=== PATIENT | female | born 1955 | race Caucasian/White ===

== ENCOUNTER → 2022-08-21 13:53 | Outpatient (BNVA) | payer OTHER, SELFPAY | PROVIDERS: PCP Physician Assistant; Visit Provider Psychiatry & Neurology Psychiatry | DX: Z13.89 Encounter for screening for other disorder (principal) ==

== ENCOUNTER → 2022-12-27 13:54 | Outpatient (BNVA) | payer OTHER, SELFPAY | PROVIDERS: PCP Physician Assistant; Visit Provider Psychiatry & Neurology Psychiatry ==

== ENCOUNTER 2023-08-20 15:40 | Outpatient (AMB) | payer OTHER, SELFPAY ==
--- NOTE | 2023-08-20 14:10 | A.OFFPSYCH_ITS ---
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 She has been looking for another apt has not had relationship with her h x years Past Psychiatric History: Patient has long history of anxiety disorder including panic which has generally been managed and history of intermittent depressive episodes Mental Status Exam Mental Status Exam Patient Appearance: Well Grooomed Patient Orientation: Person, Place, Time and Situation Level of Consciousness: Awake and Appropriate Patient Behavior: Appropriate Mood Description: Depressed, Anxious and Apprehensive Affect Description: Appropriate and Constricted Patient Cognition Impaired: No Ability to Follow Directions: Good Speech Pattern: Clear Memory Description: Intact Hallucinations: None Delusions: Not Present Thought Process: Intact and Goal Oriented Thought Content: positive for Goal Oriented, positive for Preoccupation, negative for Suicidal Ideation or negative for Homicidal Ideation Depressive Symptoms: Increased Anxiety, Increased Irritability, Hopelessness, Increased Fatigue, Loss of Energy and Difficulty Concentrating Judgement: Good Assessment and Plan Assessment & Plan (1) Generalized anxiety disorder: Status: Acute Code(s): F41.1 - Generalized anxiety disorder (2) Major depressive disorder in partial remission: Status: Acute Code(s): F32.4 - Major depressive disorder, single episode, in partial remission Plan pt has been more overwhelmed anxious ruminating has difficult feelings regarding her h who continues to refuse much care no active si preoccupied overwhelmed anxious ruminating no psychosis pt to talk with her son re situation he is HCP for Counseling and coordination of Care Pt. Self Management counseling: Breathing, Muscle relaxation and Problem solving Details-Self Mgmt counseling: feels overwelmed with medically ill h she is from Medication management counseling: Effectiveness, Side effects and Dosing range Diagnosis and Prognosis Counseling: Adequacy of current interventions Details-Diagnosis/Prognosis counseling: encourage walk yoga class Details: I spent [40] minutes reviewing the record, seeing the patient and documenting in the medical record. Counseling provided to the patient/caregiver as outlined below. Addressed patient/caregiver concerns regarding current medication regime including effective adherence. Addressed patient/caregiver concerns regarding diagnosis and prognosis including accuracy of diagnosis, prognosis over time, impact of diagnosis. Addressed patient/caregiver concerns regarding impact of recent stressors. 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
[2023-08-20 14:37] VITALS: BP 150/88; PULSE 62
== END 2023-08-20 15:41 | disposition home or self-care (01) ==
LOC: HO.HOP 15:40
PROVIDERS: PCP Physician Assistant; Visit Provider Psychiatry & Neurology Psychiatry
DX: F41.1 Generalized anxiety disorder (principal); F32.4 Major depressive disorder, single episode, in partial remission
CPT/HCPCS: 90833; 99213

== ENCOUNTER → 2023-08-20 15:40 | Outpatient (BNVA) | payer OTHER, SELFPAY | PROVIDERS: PCP Physician Assistant; Visit Provider Psychiatry & Neurology Psychiatry | DX: F41.1 Generalized anxiety disorder (principal); F32.4 Major depressive disorder, single episode, in partial remission ==

== ENCOUNTER 2024-01-23 14:15 | Outpatient (AMB) | payer OTHER, SELFPAY ==
--- NOTE | 2024-01-23 14:54 | A.OFFPSYCH_ITS ---
Intake Intake Visit Reasons: depression Allergies No Known Allergies Allergy (Verified 05/23/22 11:44) Medication List - Last Reconciled 01/23/24 by Seven Manzanares MD bupropion HCl SR 100 mg PO BID 90 days buspirone 30 mg PO BID clonazepam 0.5 mg PO DIRECTED escitalopram oxalate 20 mg PO DAILY HPI- Psychiatric Chief Complaint: depression HPI Narrative: Patient seen psychiatric follow-up. She continues to live with her although braided he continues to refuse most medical care and support. They have chronic issues relationship to their daughter who he has repeatedly given money to and there is a history of behavioral problems questionable history of addiction issues . The patient will be moving out and has apartment she is trying to set boundary they have been any type of relationship now really for a number of years. Has multiple medical problems and often refusing help her son is healthcare proxy. Patient with some obsessional worry not overly depressed some anxiety regarding this transition that is appropriate no new medical concerns there is history of cancer Past Psychiatric History: Patient has long history of anxiety disorder including panic which has generally been managed and history of intermittent depressive episodes Mental Status Exam Mental Status Exam Patient Appearance: Well Grooomed Patient Orientation: Person, Place, Time and Situation Level of Consciousness: Awake and Appropriate Patient Behavior: Appropriate Mood Description: Anxious and Apprehensive Affect Description: Appropriate and Constricted Patient Cognition Impaired: No Ability to Follow Directions: Good Speech Pattern: Clear Memory Description: Intact Hallucinations: None Delusions: Not Present Thought Process: Intact and Goal Oriented Thought Content: positive for Goal Oriented, positive for Preoccupation, negative for Suicidal Ideation or negative for Homicidal Ideation Depressive Symptoms: Increased Anxiety, Increased Irritability, Feelings of Guilt, Increased Fatigue and Loss of Energy Judgement: Good Assessment and Plan Assessment & Plan (1) Generalized anxiety disorder: Status: Acute Code(s): F41.1 - Generalized anxiety disorder (2) Major depressive disorder in partial remission: Status: Acute Code(s): F32.4 - Major depressive disorder, single episode, in partial remission Plan Patient does go out and has a separate support system of friends and others supports. She is very close with her son is looking forward to moving out she can not deal with her 's choices patient seems stable on BuSpar Lexapro 0.5 clonazepam at bedtime Medications: Refilled escitalopram oxalate 20 mg PO DAILY 90 tabs 1RF buspirone 30 mg PO BID 180 tabs 1RF clonazepam 1-2 tabs at bedtime may take additional 1 tab daily for anxiety USE CAUTION IF DRIVING 0.5 mg PO DIRECTED 60 tabs 2RF Counseling and coordination of Care Details-Self Mgmt counseling: Complex issues regarding her relationship with her moving out and trying to set boundaries especially given his medical condition Medication management counseling: Effectiveness, Side effects and Dosing range Diagnosis and Prognosis Counseling: Impact of diagnosis on life functions and Adequacy of current interventions Details: I spent [35] minutes reviewing the record, seeing the patient and documenting in the medical record. Counseling provided to the patient/caregiver as outlined below. Addressed patient/caregiver concerns regarding current medication regime including effective adherence. Addressed patient/caregiver concerns regarding diagnosis and prognosis including accuracy of diagnosis, prognosis over time, impact of diagnosis. Addressed patient/caregiver concerns regarding impact of recent stressors. 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
== END 2024-01-23 18:16 | disposition home or self-care (01) ==
LOC: HO.HOP 14:15
PROVIDERS: PCP Physician Assistant; Visit Provider Psychiatry & Neurology Psychiatry
DX: F41.1 Generalized anxiety disorder (principal); F32.4 Major depressive disorder, single episode, in partial remission
CPT/HCPCS: 90833; 99213

== ENCOUNTER → 2024-01-23 14:15 | Outpatient (BNVA) | payer OTHER, SELFPAY | PROVIDERS: PCP Physician Assistant; Visit Provider Psychiatry & Neurology Psychiatry ==

== ENCOUNTER 2024-05-25 13:14 | Outpatient (AMB) | payer OTHER, SELFPAY ==
--- NOTE | 2024-05-25 12:45 | A.OFFPSYCH_ITS ---
Intake Intake Visit Reasons: DEPRESSION Allergies No Known Allergies Allergy (Verified 05/23/22 11:44) Medication List - Last Reconciled 05/25/24 by Seven Manzanares MD bupropion HCl SR 100 mg PO BID 90 days buspirone 30 mg PO BID clonazepam 0.5 mg PO DIRECTED escitalopram oxalate 20 mg PO DAILY HPI- Psychiatric Chief Complaint: DEPRESSION HPI Narrative: Pt seen in f/u daughter has moved in taking care of her father her d is an alcoholic . Pt is doing ok daughter is helping with her , pt looking to move out. No medical changes still on waiting list for apt. has been taking lexapro buspar kloapin hs. Pt will be moving out feels more secure with d taking care of her father ,although she can hacve antisocial behavior. Past Psychiatric History: Patient has long history of anxiety disorder including panic which has generally been managed and history of intermittent depressive episodes Mental Status Exam Mental Status Exam Patient Appearance: Well Grooomed Patient Orientation: Person, Place, Time and Situation Level of Consciousness: Awake and Appropriate Patient Behavior: Appropriate Mood Description: Calm and Appropriate Affect Description: Appropriate Patient Cognition Impaired: No Ability to Follow Directions: Good Speech Pattern: Clear Memory Description: Intact Hallucinations: None Delusions: Not Present Thought Process: Intact and Goal Oriented Thought Content: positive for Goal Oriented, positive for Preoccupation, negative for Suicidal Ideation or negative for Homicidal Ideation Depressive Symptoms: Increased Anxiety, Increased Irritability, Feelings of G uilt, Increased Fatigue and Loss of Energy Judgement: Good Telehealth Telehealth Telehealth Platform: [facility] Location of provider rendering services: practice address Location of patient: address on file Patient Identification confirmed using: Name, : Yes Telehealth method: video Patient verbally consented to treatment: Yes Patient verbally consented to billing insurance company: Yes Minutes spent on Phone/Video with Pt.: 16 Assessment and Plan Assessment & Plan (1) Major depressive disorder in partial remission: Status: Acute Code(s): F32.4 - Major depressive disorder, single episode, in partial remission (2) Generalized anxiety disorder: Status: Acute Code(s): F41.1 - Generalized anxiety disorder Plan pt seems stable generally under some stress waiting for appt and living temp with her d in the house. cont plan of care. no evidence of abuse or tolerance of klonapin Medications: Refilled buspirone 30 mg PO BID 180 tabs 1RF Counseling and coordination of Care Details-Self Mgmt counseling: issues realted to family Details: I spent [] minutes reviewing the record, seeing the patient and documenting in the medical record. Counseling provided to the patient/caregiver as outlined below. Addressed patient/caregiver concerns regarding current medication regime including effective adherence. Addressed patient/caregiver concerns regarding diagnosis and prognosis including accuracy of diagnosis, prognosis over time, impact of diagnosis. Addressed patient/caregiver concerns regarding impact of recent stressors. 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
== END 2024-05-25 14:54 | disposition home or self-care (01) ==
LOC: HO.HOP 13:14
PROVIDERS: PCP Physician Assistant; Visit Provider Psychiatry & Neurology Psychiatry
DX: F32.4 Major depressive disorder, single episode, in partial remission (principal); F41.1 Generalized anxiety disorder
CPT/HCPCS: 99213

== ENCOUNTER → 2024-05-25 13:14 | Outpatient (BNVA) | payer OTHER, SELFPAY | PROVIDERS: PCP Physician Assistant; Visit Provider Psychiatry & Neurology Psychiatry ==

== ENCOUNTER 2024-08-18 13:34 | Outpatient (AMB) | payer OTHER, SELFPAY ==
--- NOTE | 2024-08-18 13:52 | MHC.OFFVISPS ---
Intake Intake Visit Reasons: depression Allergies No Known Allergies Allergy (Verified 05/23/22 11:44) HPI- Psychiatric Chief Complaint: depression HPI Narrative: Pt has been anxious dysphoric feeling under ongoing stress living with her and daughter. Her has COPD prostate cancer refuses basically to care for himself. The patient is on a waiting list for an apartment which is taking an extended period of time. She has difficult time living with her daughter who tends to be irresponsible and reportedly is stolen money repeatedly over time. We have talked about having a safe place that she can go things become too stressful. Patient tries to stay out of the house as much as possible works lot of hours goes out with friends. Patient continues on Lexapro Wellbutrin clonazepam at bedtime Past Psychiatric History: Patient has long history of anxiety disorder including panic which has generally been managed and history of intermittent depressive episodes Mental Status Exam Mental Status Exam Patient Appearance: Well Grooomed Patient Orientation: Person, Place, Time and Situation Level of Consciousness: Awake and Appropriate Patient Behavior: Appropriate Mood Description: Depressed and Apprehensive Affect Description: Appropriate Patient Cognition Impaired: No Ability to Follow Directions: Good Speech Pattern: Clear Memory Description: Intact Hallucinations: None Delusions: Not Present Thought Process: Intact and Goal Oriented Thought Content: positive for Goal Oriented, positive for Preoccupation, negative for Suicidal Ideation or negative for Homicidal Ideation Depressive Symptoms: Increased Anxiety, Increased Irritability, Feelings of Guilt, Increased Fatigue and Loss of Energy Judgement: Good Judgement and Insight: Increased anxiety regarding current situation Assessment and Plan Assessment & Plan (1) Major depressive disorder in partial remission: Status: Acute Code(s): F32.4 - Major depressive disorder, single episode, in partial remission (2) Generalized anxiety disorder: Status: Acute Code(s): F41.1 - Generalized anxiety disorder Plan Continue plan of care discussed different strategies for managing in current very stressful situation. Continue Wellbutrin escitalopram BuSpar for augmentation clonazepam Medications: Refilled bupropion HCl SR 100 mg PO BID 180 tabs 1RF 90 days escitalopram oxalate 20 mg PO DAILY 90 tabs 1RF buspirone 30 mg PO BID 180 tabs 1RF clonazepam 1-2 tabs at bedtime may take additional 1 tab daily for anxiety USE CAUTION IF DRIVING 0.5 mg PO DIRECTED 60 tabs 2RF Counseling and coordination of Care Details: I spent [] minutes reviewing the record, seeing the patient and documenting in the medical record. Counseling provided to the patient/caregiver as outlined below. Addressed patient/caregiver concerns regarding current medication regime including effective adherence. Addressed patient/caregiver concerns regarding diagnosis and prognosis including accuracy of diagnosis, prognosis over time, impact of diagnosis. Addressed patient/caregiver concerns regarding impact of recent stressors. 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
--- OUTSIDE RECORDS SUMMARY | 2024-08-18 14:31 | XMS_ITS | Data Portability ---
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 Plan of Treatment Reminders Order Date Submit Date Provider Last Modified By Organization Details Last Modified Time Details Appointments ANNUAL EXAM 2024 11:00A M Catrachita Barrera MD Not available Not available Not available Lab cytology report, thin prep, smear or scraping , cervical or vaginal 2023 024 GARRETT [facility], [address] [place] [place], [address], 01/23/2024 10:06:52 hemoglob in, gastroin testinal , stool 2023 024 [email or web address] 1 In-Office Order, Internal Use Only DO Not Attach Compendium DO Not Attach Compendium, Do Not Delete/merge, [id number] 01/16/2024 11:43:43 pap test, thinprep , cervical 2022 023 [facility], [address] [place], [address], 01/21/2023 08:18:12 fecal occult blood, stool 2022 023 [email or web address] 1 In-Office Order, Internal Use Only DO Not Attach Compendium DO Not Attach Compendium, Do Not Delete/merge, [id number] 01/14/2023 11:34:22 pap test, thinprep , cervical 2021 022 [facility], Cytopathology Service, [address] [place] [address], [id number], 01/19/2022 07:53:33 fecal occult blood, stool 2021 022 [email or web address] 1 In-Office Order, Internal Use Only DO Not Attach Compendium DO Not Attach Compendium, Do Not Delete/merge, [id number] 01/12/2022 11:32:52 pap, LB 2020 021 [facility], Cytopathology Service, [address] [place] [address], [id number], 04/26/2021 12:42:38 pap test, thinprep , cervical 2020 021 [facility], Cytopathology Service, [address] [place] [address], [id number], 01/19/2021 07:44:52 fecal occult blood, stool 2020 021 [email or web address] 1 In-Office Order, Internal Use Only DO Not Attach Compendium DO Not Attach Compendium, Do Not Delete/merge, [id number] 01/05/2021 14:29:10 Referral None recorded . Procedures None recorded . Surgeries None recorded . Imaging bone density [facility]23 [email or web address], [address], [place], [address], 07/17/2024 11:42:08 MAMMO, screenin g, digital, bilatera l - Breast Aspirati on and/or Biopsy if needed 2023 024 [facility] Orders, [address], [address], [place], [address], 01/17/2024 12:41:23 MAMMO, screenin g, digital, bilatera l - Breast Aspirati on and/or Biopsy if needed [email or web address] [place] [address] ([facility] Only), [address] [facility], [place], [address], 01/09/2024 07:51:24 MAMMO, screenin g, digital, bilatera l 2021 022 [email or web address] [facility] Orders, [address], [address], [place], [address], 01/06/2024 07:32:48 MAMMO, screenin g, digital, bilatera l 2020 021 [email or web address] [facility] Orders, [address], [address], [place], [address], 01/02/2022 08:31:21 Medication Orders None recorded . Patient TargetsNo targets recorded. 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 She had right breast invasive lobular cancer in 2008: is BRCA negative. Note from 2020: She is here for annual exam, is doing well. She had to cancel the Dr. Ortiz appointment a few times due to work, and then never rescheduled, but feels that recently her incontinence is improved. 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 She appears to be doing well. She is advised to get 1500 mg of calcium daily into her diet and supplements combined. There is a health benefit with adequate vitamin D supplementation to at least 400 units daily, daily aerobic exercise of 30 minutes, and stress reduction. Monthly self breast exam was taught, and stressed, and is advised to call if she discovers any new mass in the breast. Not available 01/05/2021 14:29:26 04/10/2021 [id number] abnormal Pap palmer t: care instructions Not available 04/10/2021 09:11:17 She is here for repeat pap as prior pap had ASCUS without HR HPV. Prior paps have all been fine. Pap is taken, if negative then return for routine care. If abnormal then proceed to colpo,this was explained, she is aware. Not available 04/10/2021 09:11:50 01/12/2022 [id number] learning about healthy weight Not available 01/12/2022 11:32:52 She is here for annual exam, doing well. Past history breast cancer. Her daughter and granddaughter finally moved out of her home! She is BRCA negative. 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 She had right breast invasive lobular cancer in 2008: is BRCA negative. She appears to be doing well. She is advised to get 1500 mg of calcium daily into her diet and supplements combined. There is a health benefit with adequate vitamin D supplementation to at least 400 units daily, daily aerobic exercise of 30 minutes, and stress reduction. Monthly self breast exam was taught, and stressed, and is advised to call if she discovers any new mass in the breast. Not available 01/12/2022 11:33:58 01/14/2023 [id number] learning about healthy weight [email or web address] Not available 01/14/2023 11:34:22 She is here for annual, doing well, remote history breast cancer. She is up to date with everything except colonoscopy, which she is just now due for. _ Note from 2021: She is here for annual exam, doing well. Past history breast cancer. Her daughter and granddaughter finally moved out of her home! She is BRCA negative. ____ She appears to be doing well. d Monthly self breast exam was taught, and stressed, and is advised to call if she discovers any new mass in the breast. Not available 01/14/2023 11:34:44 01/16/2024 [id number] learning about healthy weight [email or web address] Not available 01/16/2024 11:43:41 She is here for annual, doing well but due for bone density. She has a past history of melanoma and also of breast cancer. Her is age 71, in poor health and will not take care of himself, will not bathe, it is frustrating for her. Note from 2022: She is here for annual, doing well, remote history breast cancer. She is up to date with everything except colonoscopy, which she is just now due for. _ Note from 2021: She is here for annual exam, doing well. Past history breast cancer. Her daughter and granddaughter finally moved out of her home! She is BRCA negative. __ She appears to be doing well. Bone density ordered. Monthly self breast exam was taught, and stressed, and is advised to call if she discovers any new mass in the breast. Not available 01/16/2024 11:45:57 Reason for Referral None Reported. Results Created Date Observation Date Name Description Value Unit Range Abnormal Flag Note LastModifiedBy Organization Detail LastModifiedTime 01/06/20 21 01/05/2021 fecal occul t blood , stool Occult Blood negati ve Not Available In-Office Order Internal Use Only DO Not Attach Compendium DO Not Attach Compendium, Do Not Delete/merge, [id number] 01/05/2021 14:01:45 01/06/20 21 01/05/2021 PAP1C ASE [id number] ThinP rep Pap, Image d: ATYPI DARIUS SQUAM OUS CELLS OF UNDET ERMIN ED SIGNI MARIA FERNANDA CE (ASCU S) . Selin Beckham , CT( CP) (Case Scremirtha azra 01 10 2021) Michelle cain M.D. , Patho logis t (Case elect young allen yue d 01 17 2021) ___ RESUL T OF APTIM A HIGH RISK HPV ASSAY : HIGH RISK HPV: NEGAT LILIAN (sero types 16,18 ,31,3 3,35, 39,45 ,51,5 2,56, 58,59 ,66,6 8) Compl eted on 01-16 ADEQU ACY: Satis facto ry Endoc ervic al/tr ansfo rmati on zone compo nent prese nt. SOURC E: ThinP rep Pap HPV IF ASCUS , Cervi darius, Image d CLINI DARIUS INFOR MATIO N: HPV If Diagn osis of ASCUS . LPS 0 NEG [Z12. 4, Z01.4 19] Not Available [facility], Cytopathology Service [address] [place], [address], 01/17/2021 11:55:19 04/10/20 21 04/10/2021 PAP1C ASE [id number] ThinP rep Pap, Image d: NEGAT LILIAN FOR SQUAM OUS INTRA EPITH ELIAL LESIO N AND MALIG SHERRY . React lilian cellu lar leggett es. Abund ant red blood cells are prese nt. Willy rivero , CT( CP) (Case Scremirtha azra 04 23 2021) Yahir Bennett M.D. , Patho logis t (Case elect young allen yue d 04 24 2021) ADEQU ACY: Satis facto ry Endoc ervic al/tr ansfo rmati on zone compo nent prese nt. SOURC E: ThinP rep Pap HPV IF ASCUS , Cervi darius, Image d CLINI DARIUS INFOR MATIO N: HPV If Diagn osis of ASCUS . LPS 1 ASCUS HPV NEG. Z77.9 , R87.6 10 Not Available [facility], Cytopathology Service [address] [place], [address], 04/26/2021 12:42:38 01/13/20 22 01/12/2022 PAP1C ASE [id number] ThinP rep Pap, Image d: NEGAT LILIAN FOR SQUAM OUS INTRA EPITH ELIAL LESIO N AND MALIG SHERRY . Atrop hy. Carl Beckford hers , CT( CP) (Case elect young allen yue d 01 18 2022) ADEQU ACY: Satis facto ry Endoc ervic al/tr ansfo rmati on zone compo nent prese nt. SOURC E: ThinP rep Pap HPV IF Ascus : Refle x 16 and 18, Cervi darius, Image d CLINI DARIUS INFOR MATIO N: HPV If Diagn osis of ASCUS . LPS 04/10 neg, [Z01. 419] Not Available [facility], Cytopathology Service [address] [place], [address], 01/18/2022 08:41:36 01/13/20 22 01/12/2022 fecal occul t blood , stool Occult Blood negati ve Not Available In-Office Order Internal Use Only DO Not Attach Compendium DO Not Attach Compendium, Do Not Delete/merge, [id number] 01/12/2022 10:53:42 01/15/20 23 01/14/2023 [facility] CYTOL OGY results Patimirtha kowalski Name: RENÉ SOTOBishnu Garciamirtha dex : 1955 (Age: 67) Lab Acces joaquina #: [id number] Colle ction Date: 2022 Acces joaquina Date: 2022 Sign Out Date: 2022 Tissu e Sourc e: 1: 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 Satis facto ry for evalu ation . Endoc ervic al/tr ansfo rmati on zone prese nt. Clini darius Histo ry: Date of Last Menst rual Perio d: not avail able Menst rual Histo ry: Post- menop ausal Contr acept lilian Histo ry: not avail able Gene doll David ng: HPV (ASCU S) Case image d by the Thin rep Linhi naheed Systmirtha m with gilmar gannon or errol ramachandran Perfo rmed at [facility] ate Refer ence [facility] Cyt[facility], [address] [place] Clini darius Histo ry (othe r): Z01.4 19, LPS 01/12 neg Phone #: [phone], On-Ca ll Patho logis t: [id number] Not Available [facility] [address], [place], [address], 01/16/2023 13:31:29 01/15/20 23 01/14/2023 fecal occul t blood , stool Occult Blood negati ve Not Available In-Office Order Internal Use Only DO Not Attach Compendium DO Not Attach Compendium, Do Not Delete/merge, [id number] 01/14/2023 10:45:19 01/16/20 24 01/23/2024 IGP, RFX APTIM A HPV ASCU diagnosis: Commen t NEGAT LILIAN FOR INTRA EPITH ELIAL LESIO N OR RAY POWELL . CELLU CARLOS LEGGETT ES ASSOC IATED WITH ATROP HY ARE PRESE NT. Not Available [address], [address], 01/23/2024 10:06:52 01/16/20 24 01/23/2024 IGP, RFX APTIM A HPV ASCU specimen adequacy: Commen t Satis facto ry for evalu ation . Endoc ervic al compo nent may not be disti nguis hed in cases of atrop hy. Not Available [address], [address], 01/23/2024 10:06:52 01/16/20 24 01/23/2024 IGP, RFX APTIM A HPV ASCU clinician provided ICD10: Commen t Z01.4 19 Not Available [address], [address], 01/23/2024 10:06:52 01/16/20 24 01/23/2024 IGP, RFX APTIM A HPV ASCU performed by: Jose C Melgoza, Cytot echno logis t (ASCP ) Not Available [address], [address], 01/23/2024 10:06:52 01/16/20 24 01/23/2024 IGP, RFX APTIM A HPV ASCU electronical ly signed by: Jose C jones MD, Patho logis t Not Available [address], [address], 01/23/2024 10:06:52 01/16/20 24 01/23/2024 IGP, RFX APTIM A HPV ASCU . . Not Available [address], [address], 01/23/2024 10:06:52 01/16/20 24 01/23/2024 IGP, RFX APTIM A HPV ASCU note: Jose C wright The Pap smear is a scree supa test desig azra to aid in the detec tion of rubio ligna nt and malig nant condi tions of the uteri ne cervi x. It is not a diagn ostic proce dure and shoul d not be used as the sole means of detec ting cervi darius cance r. Both false -posi tive and false -nega tive repor ts do occur . Not Available [address], [address], 01/23/2024 10:06:52 01/16/20 24 01/23/2024 IGP, RFX APTIM A HPV ASCU test methodology: Jose C wright This liqui d based ThinP rep(R ) pap test was scree azra with the use of an image guide bhavana systmirtha m. Not Available [address] [place], [address], 01/23/2024 10:06:52 01/16/20 24 01/23/2024 IGP, RFX APTIM A HPV ASCU . Commen t The HPV DNA refle x crite socorro were not met with this speci men resul t there fore, no HPV testi ng was perfo rmed. Not Available [address], [address], 01/23/2024 10:06:52 01/16/20 24 01/16/2024 hemog lobin , gastr ointe shiv l, stool Occult Blood negati ve Not Available In-Office Order Internal Use Only DO Not Attach Compendium DO Not Attach Compendium, Do Not Delete/merge, [id number] 01/16/2024 10:51:04 12/29/19 21 12/28/2020 MAMMO , diagn ostic , digit al, unila teral No observ ation record ed. [facility] Orders [address], [place], [address], 12/28/2020 10:23:30 01/17/20 24 01/17/2024 MAMMO , scree supa, digit al, bilat eral No observ ation record ed. [facility] [address], [place], [address], 01/20/2024 06:36:28 Result Notes None recorded. Problems Name Problem SNOMED Code Status Onset Date Resolution Date Notes Provider Name and Address Organization Details Recorded Time Urinary incontinenc e [id number] Active 2017 Catrachita Barrera MD [address] [facility],[address], [place], [address], [place] - [facility], 8 11:17:57 Senile osteopenia 13124602 Active Catrachita Barrera MD [address], [place], [address], [place] [facility], 6 10:22:37 Family history of breast cancer 832922815 Active both sisters have had breast cancer, one was DCIS Catrachita Barrera MD [address], [place], [address], [place] - [facility], 9 15:04:58 History of Malignant melanoma 481742332 Active Catrachita Barrera MD [address], [place], [address], [place] - [facility], 6 10:22:37 Personal history of primary malignant neoplasm of breast 516217094 Active MyRisk panel negative Catrachita Barrera MD [address], [place], [address], [place] - [facility], 6 10:22:37 Problem Notes None recorded. Procedures Surgical History Date Name Laterality Status Provider Name and Address Organization Details Recorded Time 12/26/19 23 Most Recent Mammogram completed Anisa Anthony in [facility], 01/14/2023 10:49:43 07/01/19 09 Breast Biopsy completed Catrachita Barrera MD [address], [place], [address], [place] - [facility], 10/18/2016 13:04:12 07/01/19 09 Other completed Catrachita Barrera MD [address], [place], [address], [place] - [facility], 10/18/2016 13:04:28 07/01/19 00 Other completed Anisa Anthony in [facility], 03/06/2013 11:38:34 07/01/18 72 Tonsillectomy completed Anisa Anthony in [facility], 03/06/2013 11:38:34 Imaging Results Imaging Date Name Status LastModified by [facility] Details LastModified Time 12/28/2020 MAMMO, diagnostic, digital, unilateral completed [facility] Orders [address], [place], [address], 12/28/2020 10:23:30 01/17/2024 MAMMO, screening, digital, bilateral completed [facility] [address], [place], [address], 01/20/2024 06:36:28 Procedure Notes None recorded. Medical Equipment None Reported. Allergies No known drug allergies Medications Name Sig Start Date Stop Date Status Note LastModified by Organization Details LastModified Time buspirone tab 10mg active Not Available Not Available Not Available escitalopra m tab 20mg active Not Available Not Available N ot Available proair hfa aer active Not Available Not Available Not Available amoxicillin /clavulanat e potassium 875-125 mg tabs active Not Available Not Available Not Available buspirone hcl 10 mg tabs 10/18 completed Not Available Not Available Not Available clonazepam 1 mg tabs active Not Available Not Available No t Available escitalopra m oxalate 20 mg tabs 10/18 completed Not Available Not Available Not Available fluticasone propionate 50 mcg/act susp active Not Available Not Available Not Available proair hfa 108 (90 base) mcg/act aers active Not Available Not Available Not Available clonazepam tab 1mg active Not Available Not Available Not Available amoxicillin 500 mg capsule TAKE TWO CAPSULES BY MOUTH IMMEDIATE LY THEN TAKE ONE CAPSULE EVERY 8 HOURS UNTIL FINISHED 01/14 completed Not Available Not Available Not Available azithromyci n 250 mg tablet active Not Available Not Available Not Available prednisone 20 mg tablet active Not Available Not Available Not Available clonazepam 0.5 mg tablet TAKE ONE TO TWO TABLETS BY MOUTH AT BEDTIME, MAY TAKE AN ADDITIONA L TABLET DAILY NEEDED FOR ANXIETY, USE CAUTION IF DRIVING active Not Available Not Available No t Available sertraline 100 mg tablet active Not Available Not Available Not Available clonazepam 1 mg tablet TAKE ONE-HALF TO ONE TABLET ONCE DAILY AT BEDTIME AND TAKE ONE-HALF TABLET BY MOUTH EVERY DAY NEEDED ONLY. USE CAUTION WHILE DRIVING. active Not Available Not Available No t Available doxycycline monohydrate 100 mg tablet active Not Available Not Available Not Available bupropion HCl SR 100 mg tablet,12 hr sustained-r elease TAKE ONE TABLET BY MOUTH TWICE A DAY active Not Available Not Available No t Available meloxicam 7.5 mg tablet TAKE 1 TABLET BY MOUTH ONCE DAILY NEEDED FOR PAIN active Not Available Not Available No t Available oxycodone-a cetaminophe n 5 mg-325 mg tablet active Not Available Not Available No t Available methocarbam ol 750 mg tablet TAKE ONE TABLET BY MOUTH THREE TIMES A DAY NEEDED FOR MUSCLE SPASMS 01/14 completed Not Available Not Available Not Available benzonatate 100 mg capsule 12/18 completed Not Available Not Available Not Available erythromyci n 5 mg/gram (0.5 %) eye ointment APPLY DIRECTED TO THE RIGHT EYE 4 TIMES A DAY FOR 7 DAYS active Not Available Not Available No t Available buspirone 30 mg tablet TAKE ONE TABLET BY MOUTH TWICE A DAY active Not Available Not Available No t Available buspirone 10 mg tablet TAKE ONE TABLET BY MOUTH TWICE A DAY 10/18 completed Not Available Not Available Not Available letrozole 2.5 mg tablet active Not Available Not Available Not Available albuterol sulfate HFA 90 mcg/actuati on aerosol inhaler INHALE 2 PUFFS INTO THE LUNGS EVERY 4 HOURS NEEDED FOR WHEEZING OR SHORTNESS OF BREATH active Not Available Not Available No t Available fluticasone propionate 50 mcg/actuati on nasal spray,suspe nsion APPLY TWO SPRAYS IN EACH NOSTRIL EVERY DAY active Not Available Not Available No t Available amoxicillin 875 mg-potassiu m clavulanate 125 mg tablet TAKE ONE TABLET BY MOUTH TWICE A DAY active Not Available Not Available No t Available escitalopra m 20 mg tablet TAKE ONE TABLET BY MOUTH EVERY DAY active Not Available Not Available No t Available magnesium active 400mg Not Available Not Louise ilable Not Available selenium 01/04 completed Not Available Not Available Not Available coenzyme Q10 10/18 completed Not Available Not Available Not Available Vitamin D3 active Not Available Not Av ailable Not Available Calcium 500 active Not Available Not A vailable Not Available Zostavax (PF) 19,400 unit/0.65 mL subcutaneou s suspension VACCINATI ON ADMINISTE RED BY PHARMACIS T active Not Available Not Available No t Available Fish Oil 1,000 mg capsule 01/04 completed Not Available Not Available Not Available Probiotic active Not Available Not Louise ilable Not Available Multi Vitamin active Not Available Not Available Not Available Flulaval 45 mcg (15 mcg x 3)/0.5 mL intramuscul ar suspension 10/18 completed Not Available Not Available Not Available Fluvirin 45 mcg (15 mcg x 3)/0.5 mL intramuscul ar suspension VACCINATI ON ADMINISTE RED BY PHARMACIS T active Not Available Not Available No t Available Flucelvax Quad (PF) 60 mcg (15 mcg x 4)/0.5 mL IM syringe VACCINATI ON ADMINISTE RED BY PHARMACIS T active Not Available Not Available No t Available Shingrix (PF) 50 mcg/0.5 mL intramuscul ar suspension, kit active Not Available Not Available Not Available Flucelvax Quad (PF) 60 mcg (15 mcg x 4)/0.5 mL IM syringe active Not Available Not Available N ot Available Fluzone Quad (PF) 60 mcg (15 mcg x 4)/0.5 mL IM suspension VACCINATI ON ADMINISTE RED BY PHARMACIS T active Not Available Not Available No t Available Vitals Date Recorded Body height Body mass index (BMI) Body weight Heart rate Systolic blood pressure Diastolic blood pressure Provider Name and Address Organization Details Last Updated DateTime 1 160.02 cm 28.5 kg/m2 85962.3 7 g 65 /min 135 mm[Hg] 85 mm[Hg] Marisela Abraham [place] - [facility], 1 14:02:50 Date Recorded Body height Body mass index (BMI) Body weight Body temperature Heart rate Systolic blood pressure Diastolic blood pressure Provider Name and Address Organization Details Last Updated DateTime 1 160.02 cm 28.4 kg/m2 30355.2 2 g 97.6 [degF] 63 /min 131 mm[Hg] 81 mm[Hg] Anisa Patel [place] - [facility], 1 09:00:03 Date Recorded Body height Body mass index (BMI) Body weight Body temperature Heart rate Systolic blood pressure Diastolic blood pressure Provider Name and Address Organization Details Last Updated DateTime 2 160.02 cm 27.1 kg/m2 25981.6 3 g 97.4 [degF] 67 /min 133 mm[Hg] 79 mm[Hg] Marisela Fraser [facility], 2 10:55:19 Date Recorded Heart rate Body temperature Body height Body mass index (BMI) Body weight Systolic blood pressure Diastolic blood pressure Provider Name and Address Organization Details Last Updated DateTime 3 68 /min 97.6 [degF] 160.02 cm 27 kg/m2 48478.7 6 g 126 mm[Hg] 78 mm[Hg] Anisa Amanda [facility], 3 10:44:49 Date Recorded Body height Body mass index (BMI) Body weight Body temperature Heart rate Systolic blood pressure Diastolic blood pressure Provider Name and Address Organization Details Last Updated DateTime 4 160.02 cm 26.9 kg/m2 42028.3 2 g 97 [degF] 66 /min 122 mm[Hg] 77 mm[Hg] henrique zoila [facility], 4 11:00:52 Social History Question Answer Notes LastModified by Organizat ion Details LastModified Time Tobacco Smoking Status Former Smoker Not Available [facility] 05/03/2020 03:19:40 What Is Your Level Of Alcohol Consumption? Occasional [id number] Information not available 05/03/2020 How Many Years Have You Consumed Alcohol? 40 Information not available 04/10/2021 What Is Your Level Of Caffeine Consumption? Moderate [id number] Information not available 05/03/2020 In The 14 Days Before Symptom Onset, Have You Had Close Contact With A Laboratory-confir med COVID-19 While That Case Was Ill? No Information not available 04/10/2021 In The 14 Days Before Symptom Onset, Have You Had Close Contact With A Person Who Is Under Investigation For COVID-19 While That Person Was Ill? No Information not available 04/10/2021 Have You Been To An Area Known To Be High Risk For COVID-19? No Information not available 04/10/2021 Are You Currently Employed? Yes Information not available 04/10/2021 What Type Of Diet Are You Following? REGULAR [id number] Information not available 05/03/2020 Which Illicit Or Recreational Drugs Have You Used? No [id number] Information not available 05/03/2020 Do You Reside In Or Have You Traveled To An Area Where Ebola Virus Transmission Is Active? No [id number] Information not available 05/03/2020 Do You Or Have You Ever Used E-cigarettes Or Vape? Never Used Electronic Cigarettes [id number] Information not available 05/03/2020 Education 12 Information no t available 03/06/2013 What Is The Highest Grade Or Level Of School You Have Completed Or The Highest Degree You Have Received? [id number] Information not available 04/10/2021 Who Is Your Employer? 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 10 Information no t available 10/18/2016 Are There Any Guns Present In Your Home? No Information not available 04/10/2021 High Number Of Sexual Partners No Information not available 10/18/2016 To Which Gender Do You Self-identify? Female Information not available 10/18/2016 Marital Status Informatio n not available 03/06/2013 What Was The Date Of Your Most Recent Tobacco Screening? 01/16/2024 [email or web address] Information not available 01/16/2024 What Is Your Relationship Status? Information not available 04/10/2021 Are You Sexually Active? Yes Not Really Information not available 01/05/2021 At What Age Did You Start Smoking Tobacco? 15 Information not available 04/10/2021 Do You Or Have You Ever Used Smokeless Tobacco? Never Used Smokeless Tobacco [id number] Information not available 05/03/2020 How Much Tobacco Do You Smoke? No [id number] Information not available 05/03/2020 General Stress Level High Information not available 01/05/2020 Do You Feel Stressed (tense, Restless, Nervous, Or Anxious, Or Unable To Sleep At Night)? [id number] Information not available 04/10/2021 Do You Use Any Illicit Or Recreational Drugs? No Information not available 04/10/2021 How Many Years Have You Smoked Tobacco? 10 Quit 26yrs Ago [id number] Information not available 05/03/2020 Have You Recently (within The Last 12 Weeks, Or During A Current ) Traveled To Or Lived In A Zika-affected Area? No Information not available 10/18/2016 Do You Or Have You Ever Used Any Other Forms Of Tobacco Or Nicotine? No Information not available 04/10/2021 How Many Days In The Past Year Have You Consumed 4 Or More Drinks? 0 Information no t available 04/10/2021 Sex: Female Functional Status Question Answer Note LastModified by Organizat ion Details LastModified Time What is your exercise level? Occasional not at the moment Information not available 01/05/2021 Mental Status None recorded. Family History Relationship Description Onset Age of this Age Resolved Age Notes LastModified by Organization Details LastModified Time Sister Problem 58 chrissyjauquin arash [place] (previ ously record ed as Other) Not available 09/21/2015 10:20:14 Mother Diabetes mellitus previo usly record ed as Diabet es Not available 09/21/2015 10:20:14 Father Malignant tumor of lung previo usly record ed as Lung Cancer Not available 09/21/2015 10:20:14 Brother Malignant neoplastic disease 55 57 brain cancer (previ ously record ed as Cancer ) Not available 09/15/2014 10:02:16 Maternal Aunt Malignant tumor of breast 45 previo usly record ed as Breast Cancer Not available 09/21/2015 10:20:14 Sister Malignant tumor of breast 36 previo usly record ed as Breast Cancer also sister .age 66 in milk duct. [email or web address] Not available 12/18/2018 14:44:53 Sister Problem 46 troy arash wilcox ma (previ ously record ed as Other) Not available 09/21/2015 10:20:14 Medical History Condition Response Anesthesia complications N High Blood Pressure N Candidate for MyRisk panel N Thyroid Problems N Kidney or Bladder Problems N GI Problems N Lung Disease N Depression Y Defects or Inherited Disease N History of Ovarian Cancer N Anemia N History of Breast Cancer Y PENNY exposure N BRCA testing in past Y Osteopenia N Psychiatric Illness N Anxiety Disorder Y Diabetes N Arthritis N Headaches or Migraines N Infertility N Asthma N History of Cancer Y Endometriosis N Hepatitis N Heart Disease N Hypertension N Osteoporosis N Gynecological History Statement/Question Response If Post Menopausal, Age at Menopause 51 Most Recent Bone Density Age at Menarche 10 Current Control Method None Most Recent Mammogram 12/25/2022 Age at First Child 24 Hormone Replacement Therapy N Obstetrics History GPAL:G 3 P 2 0 1 2 Type Value Full Term 2 Spontaneous 1 Living 2 Total 3 Immunizations Vaccine Type Date Status Note Provider Nam e and Address Organization Details Recorded Time pneumococcal, unspecified formulation 9 completed GIGI Theodore in [facility], 01/14/2023 10:45:02 influenza, unspecified formulation 2 completed GIGI Theodore in [facility], 01/14/2023 10:45:02 Influenza, split virus, trivalent, preservative 4 completed GIGI Theodore in [facility], 01/14/2023 10:45:02 influenza, unspecified formulation 6 completed GIGI Theodore in [facility], 01/14/2023 10:45:02 VZIG 6 completed GIGI Cardenas in [facility], 10/18/2016 12:55:52 influenza, unspecified formulation 7 completed GIGI Theodore in [facility], 01/14/2023 10:45:02 Influenza, split virus, quadrivalent, preservative 8 completed GIGI Theodore in [facility], 01/14/2023 10:45:02 varicella 8 completed GIGI Wang in [facility], 12/18/2018 14:43:41 Influenza, split virus, quadrivalent, preservative 9 completed Marisela Leigh null, [place] - [facility], 01/05/2020 14:32:45 COVID-19, mRNA, LNP-S, PF, 30 mcg/0.3 mL dose 1 completed Marisela Abraham null, [place] - [facility], 01/14/2023 10:45:02 COVID-19, mRNA, LNP-S, PF, 30 mcg/0.3 mL dose 1 completed Marisela Abraham null, [place] - [facility], 01/14/2023 10:45:02 Pneumococcal Conjugate, unspecified formulation 0 completed Marisela Abraham null, [place] - [facility], 01/05/2021 14:05:35 Influenza, split virus, quadrivalent, preservative 0 completed Marisela Abraham null, [place] - [facility], 01/05/2021 14:06:17 Influenza, MDCK, quadrivalent, PF 8 completed Marisela Abraham null, [place] - [facility], 01/14/2023 10:45:02 Influenza, MDCK, quadrivalent, PF 7 completed Marisela Abraham null, [place] - [facility], 01/14/2023 10:45:02 zoster recombinant 8 completed Marisela Abraham null, [place] - [facility], 01/14/2023 10:45:02 zoster recombinant 8 completed Marisela Abraham null, [place] - [facility], 01/14/2023 10:45:02 Influenza, high-dose, quadrivalent, PF 0 completed Marisela Abraham null, [place] - [facility], 01/14/2023 10:45:02 Influenza, high-dose, quadrivalent, PF 1 completed Marisela Abraham null, [place] - [facility], 01/14/2023 10:45:02 COVID-19, mRNA, LNP-S, PF, 30 mcg/0.3 mL dose 2 completed Marisela Abraham null, [place] - [facility], 01/14/2023 10:45:02 COVID-19, mRNA, LNP-S, PF, 30 mcg/0.3 mL dose 1 completed Marisela white [place] - [facility], 01/14/2023 10:45:02 pneumococcal polysaccharide PPV23 8 completed Marisela white [place] - [facility], 01/14/2023 10:45:02 influenza, unspecified formulation 2 completed Marisela white [place] - [facility], 01/14/2023 10:45:02 Tdap 3 completed Marisela white [place] - [facility], 01/14/2023 10:45:02 Pneumococcal conjugate PCV 13 0 completed Marisela white [place] - [facility], 01/14/2023 10:45:02 pneumococcal, unspecified formulation 9 completed Marisela white [place] - [facility], 01/14/2023 10:45:02 zoster live 6 completed Marisela white [place] - [facility], 01/14/2023 10:45:02 Influenza, split virus, trivalent, preservative 4 completed Marisela white [place] - [facility], 01/14/2023 10:45:02 Influenza, split virus, trivalent, preservative 6 completed Marisela white [place] - [facility], 01/14/2023 10:45:02 Influenza, split virus, trivalent, preservative 0 completed Marisela white [place] - [facility], 01/14/2023 10:45:02 Influenza, split virus, trivalent, preservative 9 completed Marisela white [place] - [facility], 01/14/2023 10:45:02 Influenza, split virus, trivalent, preservative 4 completed GIGI Theodore in [facility], 01/14/2023 10:45:02 Influenza, split virus, trivalent, preservative 1 completed GIGI Theodore in [facility], 01/14/2023 10:45:02 Influenza, split virus, trivalent, preservative 8 completed GIGI Theodore in [facility], 01/14/2023 10:45:02 Influenza, split virus, trivalent, preservative 2 completed GIGI Theodore in [facility], 01/14/2023 10:45:02 Novel [id number], preservative-free 9 completed GIGI Theodore in [facility], 01/14/2023 10:45:02 Td (adult), 2 Lf tetanus toxoid, preservative free, adsorbed 0 completed GIGI Theodore in [facility], 01/14/2023 10:45:02 Influenza, split virus, quadrivalent, PF 9 completed GIGI Theodore in [facility], 01/14/2023 10:45:02 Past Encounters Encounter ID Performer Location Encounter Start Date Encounter Closed Date Diagnosis/Indication Diagnosis SNOMED-CT Code Diagnosis ICD10 Code Diagnosis Note [id number] CATRACHITA BARRERA MD [address] [employer] [place] [place] [address] 03/06/2013 11:01:11 03/09/2013 08:33:28 [id number] Anisa BARRERA MD [address] [place] [address] 04/06/2013 08:49:42 04/06/2013 16:21:13 [id number] CATRACHITA BARRERA MD [address] [employer] [address] [place] [id number] 09/15/2014 09:35:32 09/20/2014 08:03:24 Specialized medical examination [id number] Screening for malignant neoplasm of rectum 073479699 Screening mammography [id number] MD CATRACHITA Mcdowell MD [address] [place] [address], [address] [place] [id number] 09/21/2015 09:42:25 09/21/2015 11:41:18 Specialized medical examination 17659724 Z01.419 Screening for malignant neoplasm of rectum 474784335 Z12.12 Screening mammography 24 537938 Z12.31 [id number] MD CATRACHITA Mcdowell MD [address] [place] [address], [address] [place] [id number] 10/18/2016 12:46:27 10/18/2016 13:47:45 Specialized medical examination 85765331 Z01.419 Screening for malignant neoplasm of rectum 896729812 Z12.12 Screening mammography 24 686395 Z12.31 History of Malignant melanoma 149616569 Z85.820 Personal h istory of primary malignant neoplasm of breast 291693370 Z85.3 [id number] MD CATRACHITA Mcdowell MD [address] [place] [address], [address] [place] [id number] 10/18/2017 10:37:35 10/18/2017 13:55:29 Specialized medical examination 49110727 Z01.419 Screening for malignant neoplasm of rectum 488600549 Z12.12 Screening mammography 24 652832 Z12.31 Urinary incontinence 165 596542 R32 Personal h istory of primary malignant neoplasm of breast 470008723 Z85.3 [id number] MD CATRACHITA Mcdowell MD [address] [place] [address],[facility] [address] [place] [id number] 12/18/2018 14:28:57 12/18/2018 15:27:05 Specialized medical examination 48471117 Z01.419 Screening for malignant neoplasm of rectum 140010461 Z12.12 Screening mammography 24 565086 Z12.31 Urinary incontinence 165 031884 N39.3 Personal h istory of primary malignant neoplasm of breast 896761125 Z85.3 Family his tory of breast cancer 186958971 Z80.3 [id number] MD CATRACHITA Mcdowell MD [address] [place] [address], [address] [place] [id number] 01/05/2020 14:25:48 01/05/2020 15:12:14 Specialized medical examination 81794234 Z01.419 Screening for malignant neoplasm of rectum 318697567 Z12.12 Screening mammography 24 610309 Z12.31 Menopausal syndrome 1237 55918 N95.1 [id number] MD CATRACHITA Mcdowell MD [address] [place] [address], [place] [id number] 01/05/2021 13:57:45 01/05/2021 14:54:34 Specialized medical examination 18907235 Z01.419 Screening for malignant neoplasm of rectum 530431077 Z12.12 Screening mammography 24 159223 Z12. [id number] MD CATRACHITA Mcdowell MD [address] [place], [place] [address] [address] 04/10/2021 08:56:08 04/10/2021 09:48:12 Atypical squamous cells of undetermined significance on cervical Papanicolaou smear 169014173 R87.610 [id number] MD CATRACHITA Mcdowell MD [address] [place] [address], [place] [address] 01/12/2022 10:49:47 01/12/2022 11:52:52 Specialized medical examination 55623639 Z01.419 Screening for malignant neoplasm of rectum 884525058 Z12.12 Screening mammography 24 754156 Z12. Personal h istory of primary malignant neoplasm of breast 562389100 Z85.3 [id number] MD CATRACHITA Mcdowell MD [address] [place] [address], [place] [address] 01/14/2023 10:42:03 01/14/2023 11:53:41 Specialized medical examination 68882375 Z01.419 Screening for malignant neoplasm of rectum 705863907 Z12.12 Screening mammography 24 282044 Z12. [id number] MD CATRACHITA Mcdowell MD [address] [place] [address] [place] [address] 01/16/2024 10:47:11 01/16/2024 13:03:47 Specialized medical examination 39191807 Z01.419 Screening for malignant neoplasm of rectum 427192085 Z12.12 Screening mammography 24 579836 Z12.31 Menopausal syndrome 1237 72665 N95.8 History of Malignant melanoma 624736425 Z85.820 Personal h istory of primary malignant neoplasm of breast 682391529 Z85.3 Health Concerns Section Related Observation LastModified by Organization Detai ls LastModified Time None Recorded Concern Status LastModified by Organization Details LastModified Time None Recorded Advance Directives Directive None Recorded Payers Encounter Date Sequence Insurance Name Policy Number Policy Kelly Covered Member ID Kelly Member ID Guarantor Name 01/05/2021 1 [facility] [id number] Kelsey Wyatt [id number] Kelsey Schneider 04/10/2021 1 [facility] [id number] Kelsey Schneider [id number] Kelsey Wyatt 01/12/2022 1 [facility] [id number] Kelseymirela Schneider [id number] Kelseymirela Schneider 01/14/2023 1 [facility] [employer] [phone] Kelseymirela Schneider [id number] Kelsey Wyatt 01/16/2024 1 [facility] [employer] [phone] Kelsey Wyatt [id number] Kelsey Wyatt Notes Date Note Type Note Provider Name and Address Organization Details Recorded Time 01/05/2021 text/html She is here for annual exam, 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 She had right breast invasive lobular cancer in 2008: is BRCA negative. Note from 2020: She is here for annual exam, is doing well. She had to cancel the Dr. Ortiz appointment a few times due to work, and then never rescheduled, but feels that recently her incontinence is improved. 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 Catrachita Barrera MD [address], [place], [address], [place] - [facility], 01/05/2021 14:29:58 04/10/2021 text/html She is here for repeat pap as prior pap had ASCUS without HR HPV. Prior paps have all been fine. Catrachita Barrera MD [address], [place], [address], [employer] [facility], 04/10/2021 09:12:14 01/12/2022 text/html She is here for annual exam, doing well. Past history breast cancer. Her daughter and granddaughter finally moved out of her home! 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 Catrachita Barrera MD [address] [facility],[address], [place], [address], [employer] [facility], 01/12/2022 11:34:16 01/14/2023 text/html She is here for annual, doing well, remote history breast cancer. She is up to date with everything except colonoscopy, which she is just now due for. Note from 2021: She is here for annual exam, doing well. Past history breast cancer. Her daughter and granddaughter finally moved out of her home!She is BRCA negative. Catrachita Barrera MD [address], [place], [address], [place] - [facility], 01/14/2023 11:35:40 01/16/2024 text/html She is here for annual, doing well but due for bone density. She has a past history of melanoma and also of breast cancer. Her is age 71, in poor health and will not take care of himself, will not bathe, it is frustrating for her. Note from 2022: She is here for annual, doing well, remote history breast cancer. She is up to date with everything except colonoscopy, which she is just now due for. Note from 2021: She is here for annual exam, doing well. Past history breast cancer. Her daughter and granddaughter finally moved out of her home!She is BRCA negative. Catrachita Barrera MD [address] [facility],[address], [place], [address], [place] - [facility], 01/16/2024 11:46:20 OBGyn Episode No OBEpisode recorded.
== END 2024-08-18 14:03 | disposition home or self-care (01) ==
LOC: HO.HOP 13:34
PROVIDERS: PCP Physician Assistant; Visit Provider Psychiatry & Neurology Psychiatry
DX: F32.4 Major depressive disorder, single episode, in partial remission (principal); F41.1 Generalized anxiety disorder
CPT/HCPCS: 99214

== ENCOUNTER 2024-12-29 12:59 | Outpatient (AMB) | payer OTHER, SELFPAY ==
--- NOTE | 2024-12-29 13:45 | A.OFFPSYCH_ITS ---
Intake Intake Visit Reasons: depression Allergies No Known Allergies Allergy (Verified 05/23/22 11:44) HPI- Psychiatric Chief Complaint: depression HPI Narrative: Patient seen psychiatric follow-up. Patient has generally been doing okay but still has not been able to move into her own apartment. She is still living with her ex- and daughter. 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 Her daughter has taken money multiple times in the past has generally not been reliable but has been very close with her father. 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 Her PHQ-9 and SUKHI are somewhat elevated she is in an ongoing difficult situation. We have discussed previously the possibility of moving in with other family and friends on a temporary basis but this has not felt practical to the patient. No evidence of recurrent cancer. Patient continues on Klonopin at HS as needed BuSpar b.i.d. Lexapro and Wellbutrin which generally has been helpful. Patient does socialize outside of the house Past Psychiatric History: Patient has long history of anxiety disorder including panic which has generally been managed and history of intermittent depressive episodes Mental Status Exam Mental Status Exam Patient Appearance: Well Grooomed Patient Orientation: Person, Place, Time and Situation Level of Consciousness: Awake and Appropriate Patient Behavior: Appropriate Mood Description: Depressed and Apprehensive Affect Description: Appropriate and Blunted Patient Cognition Impaired: No Ability to Follow Directions: Good Speech Pattern: Clear Memory Description: Intact Hallucinations: None Delusions: Not Present Thought Process: Intact and Goal Oriented Thought Content: positive for Goal Oriented, positive for Preoccupation, negative for Suicidal Ideation or negative for Homicidal Ideation Depressive Symptoms: Increased Anxiety, Increased Irritability and Loss of Energy Judgement: Good Judgement and Insight: Ongoing anxiety regarding current situation was able to take in information regarding problem-solving patient is in every other week counseling which has been helpful Assessment and Plan Assessment & Plan (1) Major depressive disorder in partial remission: Status: Acute Code(s): F32.4 - Major depressive disorder, single episode, in partial remission (2) Generalized anxiety disorder: Status: Acute Code(s): F41.1 - Generalized anxiety disorder Plan Discussed with patient using lowest dose of clonazepam. Strongly urged regular walking exercise consideration of something like a yoga or meditation class. Strongly urged consideration of spending time away from the apartment with her ex- when all possible. It is more difficult for the patient in the summer when she is not working and having that structure away from the house. No SI no psychosis Medications: Refilled escitalopram oxalate 20 mg PO DAILY 90 tabs 1RF bupropion HCl SR 100 mg PO BID 180 tabs 1RF 90 days buspirone 30 mg PO BID 180 tabs 1RF clonazepam 1-2 tabs at bedtime may take additional 1 tab daily for anxiety USE CAUTION IF DRIVING 0.5 mg PO DIRECTED 60 tabs 2RF Counseling and coordination of Care Details-Self Mgmt counseling: Issues related to maintaining stability why she is staying in the house that she shares with her daughter and ex- Diagnosis and Prognosis Counseling: Impact of diagnosis on life functions and Adequacy of current interventions Details: I spent [39] minutes reviewing the record, seeing the patient and documenting in the medical record. Counseling provided to the patient/caregiver as outlined below. Addressed patient/caregiver concerns regarding current medication regime including effective adherence. Addressed patient/caregiver concerns regarding diagnosis and prognosis including accuracy of diagnosis, prognosis over time, impact of diagnosis. Addressed patient/caregiver concerns regarding impact of recent stressors. 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
--- OUTSIDE RECORDS SUMMARY | 2024-12-29 13:58 | XMS_ITS | Data Portability ---
Author Organization [place] - [facility],, CATRACHITA BARRERA MD Address [address] [address] Care Team Providers Care Airset Caster Name Role Phone JOSELINE BRIGGS Primary Care Provider Assessment No assessment recorded. Plan of Treatment Reminders Order Date Submit Date Provider Last Modified By Organization Details Last Modified Time Details Appointments ANNUAL EXAM 2024 11:00A M Catrachita Barrera MD Not available Not available Not available Lab cytology report, thin prep, smear or scraping , cervical or vaginal 2023 024 GARRETT [facility] (Centralized Electronic Ordering - All Locations), Patient Can Go To The Location Of Their Choice, [id number] 01/23/2024 10:06:52 hemoglob in, gastroin testinal , stool 2023 024 [email or web address] 1 In-Office Order, Internal Use Only DO Not Attach Compendium DO Not Attach Compendium, Do Not Delete/merge, [id number] 01/16/2024 11:43:43 pap test, thinprep , cervical 2022 023 [facility] (Centralized Electronic Ordering - All Locations), Patient Can Go To The Location Of Their Choice, [id number] 01/21/2023 08:18:12 fecal occult blood, stool 2022 023 [email or web address] 1 In-Office Order, Internal Use Only DO Not Attach Compendium DO Not Attach Compendium, Do Not Delete/merge, [id number] 01/14/2023 11:34:22 pap test, thinprep , cervical 2021 022 [facility], Cytopathology Service, [address] [facility], [place], [address], 01/19/2022 07:53:33 fecal occult blood, stool 2021 022 [email or web address] 1 In-Office Order, Internal Use Only DO Not Attach Compendium DO Not Attach Compendium, Do Not Delete/merge, [id number] 01/12/2022 11:32:52 pap, LB 2020 021 [facility], Cytopathology Service, [address] [place] [address], [id number], 04/26/2021 12:42:38 pap test, thinprep , cervical 2020 021 [facility], Cytopathology Service, [address] [place] [address], [id number], 01/19/2021 07:44:52 fecal occult blood, stool 2020 021 [email or web address] 1 In-Office Order, Internal Use Only DO Not Attach Compendium DO Not Attach Compendium, Do Not Delete/merge, [id number] 01/05/2021 14:29:10 Referral None recorded . Procedures None recorded . Surgeries None recorded . Imaging bone density [email or web address], [address], [address], [place], [address], 07/17/2024 11:42:08 MAMMO, screenin g, digital, bilatera l - Breast Aspirati on and/or Biopsy if needed 2023 024 [facility] Orders, [address], [address], [place], [address], 01/17/2024 12:41:23 MAMMO, screenin g, digital, bilatera l - Breast Aspirati on and/or Biopsy if needed [email or web address] ([facility] Only), [address] [facility], [place], [address], 01/09/2024 07:51:24 MAMMO, screenin g, digital, bilatera l 2021 022 [email or web address] [facility] Orders, [address], [address], [place], [address], 01/06/2024 07:32:48 MAMMO, screenin g, digital, bilatera l 2020 021 [email or web address] [facility] Orders, [address], [place], [address], 01/02/2022 08:31:21 Medication Orders None recorded . Patient TargetsNo targets recorded. Patient Instructions Encounter Date Encounter Id Patient Instructions Last Modified By Organization Details Last Modified Time 01/05/2021 [id number] learning about healthy weight [email or web address] Not available [...] the breast. Not available 01/05/2021 14:29:26 04/10/2021 [id number] abnormal Pap palmer t: care instructions Not available 04/10/2021 09:11:17 She is here for repeat pap as prior pap had ASCUS without HR HPV. Prior paps have all been fine. Pap is taken, if negative then return for routine care. If abnormal then proceed to colpo,this was explained, she is aware. Not available 04/10/2021 09:11:50 01/12/2022 [id number] learning about healthy weight Not available 01/12/2022 [...] the breast. Not available 01/12/2022 11:33:58 01/14/2023 [id number] learning about healthy weight [email or web address] Not available [...] the breast. Not available 01/14/2023 11:34:44 01/16/2024 [id number] learning about healthy weight [email or web address] Not available [...] Abnormal Flag Note LastModifiedBy Organization Detail LastModifiedTime 01/06/2001/05/2021 fecal occul t blood , stool Occult Blood negati ve Not Available In-Office Order Internal Use Only DO Not Attach Compendium DO Not Attach Compendium, Do Not Delete/merge, [id number] 01/05/2021 14:01:45 01/06/20 21 01/05/2021 PAP1C ASE [email or web address] ThinP rep Pap, Image d: ATYPI DARIUS SQUAM OUS CELLS OF UNDET ERMIN ED KAYLII MARIA FERNANDA CE (ASCU S) . Selin Beckham , CT( CP) (Case Karla azra 01 10 2021) Michelle cain M.D. , Patho logis t (Case elect young turner d 01 17 2021) ___ RESUL T [...] NEG [Z12. 4, Z01.4 19] Not Available [facility], Cytopathology Service [address] [place], [address], 01/17/2021 11:55:19 04/10/20 21 04/10/2021 PAP1C ASE [email or web address] ThinP rep Pap, Image d: NEGAT LILIAN FOR SQUAM OUS INTRA EPITH ELIAL LESIO N AND MALIG SHERRY . React lilian cellu lar leggett es. Abund ant red blood cells are prese nt. Willy Corey r , CT( CP) (Case Scremirtha azra 04 [...] NEG. Z77.9 , R87.6 10 Not Available [facility], Cytopathology Service [address] [place], [address], 04/26/2021 12:42:38 01/13/20 22 01/12/2022 PAP1C ASE [email or web address] ThinP rep Pap, Image d: NEGAT LILIAN [...] LPS 04/10 neg, [Z01. 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 PAP TEST, CERVI DARIUS: Final Diagn osis: [...] ry: not avail able Gene doll David farfan: HPV (ASCU S) Case image d by the Thin rep Linhi naheed Systmirtha m with iglmar gannon or errol ramachandran Perfo rmed at [facility] ate Refer ence Labor atory depar tment of Cytol ogy, [address] [place] Clini darius Histo ry (othe r): Z01.4 19, LPS 01/12 neg Phone #: [phone], On-Ca ll Patho logis t: [id number] Not Available [facility] (Centralized Electronic Ordering - All Locations) Patient Can Go To The Location Of Their Choice, [id number] 01/16/2023 13:31:29 01/15/20 23 01/14/2023 fecal occul t blood , stool Occult Blood negati ve Not Available In-Office Order Internal Use Only DO Not Attach Compendium DO Not Attach Compendium, Do Not Delete/merge, [id number] 01/14/2023 10:45:19 01/16/20 24 01/23/2024 IGP, RFX APTIM A HPV ASCU diagnosis: Commen t NEGAT LILIAN FOR INTRA EPITH ELIAL LESIO N OR RAY POWELL . CELLU CARLOS LEGGETT ES ASSOC IATED WITH ATROP HY ARE PRESE NT. Not Available [address], [address], 01/23/2024 10:06:52 01/16/20 24 01/23/2024 IGP, RFX APTIM A HPV ASCU specimen adequacy: Commen t Satis facto ry for evalu ation . Endoc ervic al compo nent may not be disti nguis hed in cases of atrop hy. Not Available [address], [address], 01/23/2024 10:06:52 01/16/20 24 01/23/2024 IGP, RFX APTIM A HPV ASCU clinician provided ICD10: Commen t Z01.4 19 Not Available [address] [place], [address], 01/23/2024 10:06:52 01/16/20 24 01/23/2024 IGP, RFX APTIM A HPV ASCU performed by: Jose C Melgoza, Cytot echno logis t (ASCP ) Not Available [address], [address], 01/23/2024 10:06:52 01/16/20 24 01/23/2024 IGP, RFX APTIM A HPV ASCU electronical ly signed by: Jose C jones MD, Patho logis t Not Available [address], [address], 01/23/2024 10:06:52 01/16/20 24 01/23/2024 IGP, RFX APTIM A HPV ASCU . . Not Available [address], [address], 01/23/2024 10:06:52 01/16/20 24 01/23/2024 IGP, RFX [...] repor ts do occur . Not Available [address], [address], 01/23/2024 10:06:52 01/16/20 24 01/23/2024 IGP, RFX APTIM A HPV ASCU test methodology: Jose C wright This liqui d based ThinP rep(R ) pap test was scree azra with the use of an image guide bhavana richardson. Not Available [address], [address], 01/23/2024 10:06:52 01/16/20 24 01/23/2024 IGP, RFX APTIM A HPV ASCU . Commen t The HPV DNA refle x crite socorro were not met with this speci men resul t there fore, no HPV testi ng was perfo rmed. Not Available [facility] [address] [place], [address], 01/23/2024 10:06:52 01/16/20 24 01/16/2024 hemog lobin , gastr ointe shiv l, stool Occult Blood negati ve Not Available In-Office Order Internal Use Only DO Not Attach Compendium DO Not Attach Compendium, Do Not Delete/merge, [id number] 01/16/2024 10:51:04 12/29/19 21 12/28/2020 MAMMO , diagn ostic , digit al, unila teral No observ ation record ed. [facility] Orders [address], [place], [address], 12/28/2020 10:23:30 01/17/20 24 01/17/2024 MAMMO , scree supa, digit al, bilat eral No observ ation record ed. [facility] [address], [place], [address], 01/20/2024 06:36:28 Result Notes None recorded. Problems Name Problem SNOMED Code Status Onset Date Resolution Date Notes Provider Name and Address Organization Details Recorded Time Urinary incontinenc e [id number] Active 2017 Catrachita Barrera MD [address] [facility],[address], [place], [address], [place] - [facility], 8 11:17:57 Senile osteopenia 42637485 Active Catrachita Barrera MD [address], [place], [address], [place] [facility], 6 10:22:37 Family history of breast cancer 977589057 Active both sisters have had breast cancer, one was DCIS Catrachita Barrera MD [address], [place], [address], [place] - [facility], 9 15:04:58 History of Malignant melanoma 476561061 Active Catrachita Barrera MD [address], [place], [address], [place] - [facility], 6 10:22:37 Personal history of primary malignant neoplasm of breast 698471199 Active MyRisk panel negative Catrachita Barrera MD [address], [place], [address], [facility] - [facility], 6 10:22:37 Problem Notes None recorded. Procedures Surgical History Date Name Laterality Status Provider Name and Address Organization Details Recorded Time 12/26/19 23 Most Recent Mammogram completed Anisa Anthony in [facility], 01/14/2023 10:49:43 07/01/19 09 Breast Biopsy completed Catrachita Barrera MD [address], [place], [address], [facility] - [facility], 10/18/2016 13:04:12 07/01/19 09 Other completed Catrachita Barrera MD [address], [place], [address], [facility] - [facility], 10/18/2016 13:04:28 07/01/19 00 Other completed Anisa Anthony in [facility], 03/06/2013 11:38:34 07/01/18 72 Tonsillectomy completed Anisa Anthony in [facility], 03/06/2013 11:38:34 Imaging Results None recorded. Procedure Notes None recorded. Medical Equipment None [...] completed Not Available Not Available Not Available escitalopra m tab 20mg active Not Available Not Available N ot Available proair hfa aer active Not Available Not Available Not Available fluticasone [...] Not Available Not Available Not Available Flulaval 7481-1759 45 mcg (15 mcg x 3)/0.5 mL [...] Updated DateTime 1 160.02 cm 28.5 kg/m2 60669.3 7 g 65 /min 135 mm[Hg] 85 mm[Hg] Marisela Fraser [facility], 1 14:02:50 Date Recorded Body height Body mass index (BMI) Body weight Body temperature Heart rate Systolic blood pressure Diastolic blood pressure Provider Name and Address Organization Details Last Updated DateTime 2 160.02 cm 27.1 kg/m2 59388.6 3 g 97.4 [degF] 67 /min 133 mm[Hg] 79 mm[Hg] Marisela Fraser [facility], 2 10:55:19 Date Recorded Heart rate Body temperature Body height Body mass index (BMI) Body weight Systolic blood pressure Diastolic blood pressure Provider Name and Address Organization Details Last Updated DateTime 3 68 /min 97.6 [degF] 160.02 cm 27 kg/m2 42966.7 6 g 126 mm[Hg] 78 mm[Hg] Anisa Fraser [facility], 3 10:44:49 Date Recorded Body height Body mass index (BMI) Body weight Body temperature Heart rate Systolic blood pressure Diastolic blood pressure Provider Name and Address Organization Details Last Updated DateTime 4 160.02 cm 26.9 kg/m2 12019.3 2 g 97 [degF] 66 /min 122 mm[Hg] 77 mm[Hg] henrique Fraser [facility], 4 11:00:52 Date Recorded Body height Body mass index (BMI) Body weight Body temperature Heart rate Systolic blood pressure Diastolic blood pressure Provider Name and Address Organization Details Last Updated DateTime 1 160.02 cm 28.4 kg/m2 38804.2 2 g 97.6 [degF] 63 /min 131 mm[Hg] 81 mm[Hg] Anisa Patel [place] - [facility], 1 09:00:03 Social History Question Answer Notes LastModified by Organizat ion Details LastModified Time Tobacco Smoking Status Former [facility]oker Not [facility] 05/03/2020 03:19:40 How Many Years Have You Consumed Alcohol? 40 Information not available 04/10/2021 What Is Your Level Of Caffeine Consumption? Moderate [id number] Information not available 05/03/2020 In The 14 [...] For COVID-19? No Information not available 04/10/2021 What Type Of Diet Are You Following? REGULAR [id number] Information not available 05/03/2020 Which Illicit Or Recreational Drugs Have You Used? No [id number] Information not available 05/03/2020 Do You Reside In Or Have You Traveled To An Area Where Ebola Virus Transmission Is Active? No [id number] Information not available 05/03/2020 Education 12 Information no t available 03/06/2013 What Is The Highest Grade Or Level Of School You Have Completed Or The Highest Degree You Have Received? [id number] Information not available 04/10/2021 Who Is Your Employer? [employer] Information not available 01/12/2022 How Many Days In The Past Year Have You Had A Heavy Drinking Consumption (4+ Female, 5+ Male)? 10 Information no t available 10/18/2016 Are There Any Guns Present In Your Home? No Information not available 04/10/2021 High Number Of Sexual Partners No Information not available 10/18/2016 To Which Gender Do You Self-identify? Female Information not available 10/18/2016 Marital Status [email or web address] Informatio n not available 03/06/2013 What Was The Date Of Your Most Recent Tobacco Screening? 01/16/2024 [email or web address] Information not available 01/16/2024 What Is Your Relationship Status? Information not available 04/10/2021 Are You Sexually Active? Yes Not Really Information not available 01/05/2021 At What Age Did You Start Smoking Tobacco? 15 Information not available 04/10/2021 How Much Tobacco Do You Smoke? No [id number] Information not available 05/03/2020 General Stress Level High Information not available 01/05/2020 How Many Years Have You Smoked Tobacco? 10 Quit 26yrs Ago [id number] Information not available 05/03/2020 Have You Recently (within The Last 12 Weeks, Or During A Current ) Traveled To Or Lived In A Zika-affected Area? No Information not available 10/18/2016 How Many Days In The Past Year Have You Consumed 4 Or More Drinks? 0 Information no t available 04/10/2021 Sex: Female Functional Status Question Answer Note LastModified by Organizat ion Details LastModified Time Do you use any illicit or recreational drugs? No Information not available 04/10/2021 Do you or have you ever used any other forms of tobacco or nicotine? No Information not available 04/10/2021 What is your level of alcohol consumption? Occasional [id number] Information not available 05/03/2020 Do you or have you ever used smokeless tobacco? Never used smokeless tobacco [id number] Information not available 05/03/2020 Are you currently employed? 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 Never used electronic cigarettes [id number] Information not available 05/03/2020 What is your exercise level? Occasional not at the moment Information not available 01/05/2021 Mental Status Question Answer Note LastModified by Organization D etails LastModified Time Do you feel stressed (tense, restless, nervous, or anxious, or unable to sleep at night)? [id number] Information not available 04/10/2021 Family History Relationship Description Onset Age of this Age Resolved Age Notes LastModified by Organization Details LastModified Time Sister Problem 58 [place] (previ ously record ed as Other) Not available 09/21/2015 10:20:14 Mother Diabetes mellitus previo usly record ed as Diabet es Not available 09/21/2015 10:20:14 Father Malignant neoplasm of lung previo usly record ed as [...] available 12/18/2018 14:44:53 Sister Problem 46 [place] (previ ously record ed as Other) Not available 09/21/2015 10:20:14 Medical History Condition Response High Blood Pressure N Depression Y History of Ovarian Cancer N Anxiety Disorder Y Arthritis N Infertility N Kidney or Bladder Problems N Osteopenia N Asthma N Hepatitis N Anesthesia complications N Candidate for MyRisk panel N Lung Disease N Defects or Inherited Disease N BRCA testing in past Y History of Cancer Y Endometriosis N Thyroid Problems N GI Problems N Anemia N History of Breast Cancer Y PENNY exposure N Psychiatric Illness N Diabetes N Headaches or Migraines N Heart Disease N Hypertension N Osteoporosis [...] unspecified formulation 9 completed [place] Theodore in [facility], 01/14/2023 10:45:02 influenza, unspecified formulation 2 completed GIGI Theodore in [facility], 01/14/2023 10:45:02 Influenza, split virus, trivalent, preservative 4 completed GIGI Theodore in [facility], 01/14/2023 10:45:02 influenza, unspecified formulation 6 completed GIGI Theodore in [facility], 01/14/2023 10:45:02 VZIG 6 completed GIGI Cardenas in [facility], 10/18/2016 12:55:52 influenza, unspecified formulation 7 completed GIGI Theodore in [facility], 01/14/2023 10:45:02 Influenza, split virus, quadrivalent, preservative 8 completed GIGI Theodore in [facility], 01/14/2023 10:45:02 varicella 8 completed GIGI Wang in [facility], 12/18/2018 14:43:41 Influenza, split virus, quadrivalent, preservative 9 completed GIGI Theodore in [facility], 01/05/2020 14:32:45 COVID-19, mRNA, LNP-S, PF, 30 mcg/0.3 mL dose 1 completed GIGI Theodore in [facility], 01/14/2023 10:45:02 COVID-19, mRNA, LNP-S, PF, 30 mcg/0.3 mL dose 1 completed GIGI Theodore in [facility], 01/14/2023 10:45:02 Pneumococcal Conjugate, unspecified formulation 0 completed Marisela Abraham null, [place] [facility], 01/05/2021 14:05:35 Influenza, split virus, quadrivalent, preservative 0 completed Marisela Leigh null, [place] [facility], 01/05/2021 14:06:17 Influenza, MDCK, quadrivalent, PF 8 completed Marisela Leigh null, [place] [facility], 01/14/2023 10:45:02 Influenza, MDCK, quadrivalent, PF 7 completed Marisela Leigh null, [place] [facility], 01/14/2023 10:45:02 zoster recombinant 8 completed Marisela Leigh null, [place] [facility], 01/14/2023 10:45:02 zoster recombinant 8 completed Marisela Abraham null, [place] [facility], 01/14/2023 10:45:02 Influenza, high-dose, quadrivalent, PF 0 completed Marisela Leigh null, [place] [facility], 01/14/2023 10:45:02 Influenza, high-dose, quadrivalent, PF 1 completed Marisela Abraham null, [place] [facility], 01/14/2023 10:45:02 COVID-19, mRNA, LNP-S, PF, 30 mcg/0.3 mL dose 2 completed Marisela Leigh null, [place] [facility], 01/14/2023 10:45:02 COVID-19, mRNA, LNP-S, PF, 30 mcg/0.3 mL dose 1 completed Marisela Leigh null, [place] [facility], 01/14/2023 10:45:02 pneumococcal polysaccharide PPV23 8 completed Marisela Abraham null, [place] [facility], 01/14/2023 10:45:02 influenza, unspecified formulation 2 completed Marisela Leigh null, [place] [facility], 01/14/2023 10:45:02 Tdap 3 completed Marisela white [place] - [facility], 01/14/2023 10:45:02 Pneumococcal conjugate PCV 13 0 completed Marisela white [place] - [facility], 01/14/2023 10:45:02 pneumococcal, unspecified formulation [...] Influenza, split virus, trivalent, preservative 1 completed Marisela white [place] [facility], 01/14/2023 10:45:02 Influenza, split virus, trivalent, preservative 8 completed Marisela white [place] [facility], 01/14/2023 10:45:02 Influenza, split virus, trivalent, preservative 12/07/201 2 completed GIGI Theodore in [facility], 01/14/2023 10:45:02 Novel [id number], preservative-free 9 completed GIGI Theodore in [facility], 01/14/2023 10:45:02 Td (adult), 2 Lf tetanus toxoid, preservative free, adsorbed 0 completed GIGI Theodore in [facility], 01/14/2023 10:45:02 Influenza, split virus, quadrivalent, PF 9 completed GIGI Theodore in [facility], 01/14/2023 10:45:02 Past Encounters Encounter ID Performer Location Encounter Start Date Encounter Closed Date Diagnosis/Indication Diagnosis SNOMED-CT Code Diagnosis ICD10 Code Diagnosis Note [id number] MD CATRACHITA Mcdowell MD [address] [place] [address], [address] [place] [address] 03/06/2013 11:01:11 03/09/2013 08:33:28 [id number] MD CATRACHITA Mcdowell MD [address] [place] [address], [address] [place] [address] 04/06/2013 08:49:42 04/06/2013 16:21:13 [id number] MD CATRACHITA Mcdowell MD [address] [place] [address], [address] [place] [address] 09/15/2014 09:35:32 09/20/2014 08:03:24 Specialized medical examination [id number] Screening for malignant neoplasm of rectum 685736039 Screening mammography 81961714 [id number] MD CATRACHITA Mcdowell MD [address] [place] [address], [address] [place] [address] 09/21/2015 09:42:25 09/21/2015 11:41:18 Specialized medical examination 93045878 Z01.419 Screening for malignant neoplasm of rectum 361667282 Z12.12 Screening mammography 24 259214 Z12.31 [id number] MD CATRACHITA Mcdowell MD [address] [place] [address], [address] [place] [address] 10/18/2016 12:46:27 10/18/2016 13:47:45 Specialized medical examination 91280497 Z01.419 Screening for malignant neoplasm of rectum 469718680 Z12.12 Screening mammography 24 499114 Z12.31 History of Malignant melanoma 364784999 Z85.820 Personal h istory of primary malignant neoplasm of breast 316763921 Z85.3 [id number] MD CATRACHITA Mcdowell MD [address] [place] [address], [address] [place] [address] 10/18/2017 10:37:35 10/18/2017 13:55:29 Specialized medical examination 50011341 Z01.419 Screening for malignant neoplasm of rectum 533273807 Z12.12 Screening mammography 24 807950 Z12.31 Urinary incontinence 165 443571 R32 Personal h istory of primary malignant neoplasm of breast 672617427 Z85.3 [id number] MD CATRACHITA Mcdowell MD [address] [place] [address], [address] [place] [address] 12/18/2018 14:28:57 12/18/2018 15:27:05 Specialized medical examination 63130290 Z01.419 Screening for malignant neoplasm of rectum 046298052 Z12.12 Screening mammography 24 537574 Z12.31 Urinary incontinence 165 222895 N39.3 Personal h istory of primary malignant neoplasm of breast [id number] Z85.3 Family his tory of breast cancer [id number] Z80.3 [id number] MD CATRACHITA Mcdowell MD [address] [place] [address], [address] [place] [address] 01/05/2020 14:25:48 01/05/2020 15:12:14 Specialized medical examination [id number] Z01.419 Screening for malignant neoplasm of rectum [id number] Z12.12 Screening mammography 24 123349 Z12.31 Menopausal syndrome 1237 56904 N95.1 [id number] MD CATRACHITA Mcdowell MD [address] [place] [address],[address] [address] 01/05/2021 13:57:45 01/05/2021 14:54:34 Specialized medical examination [id number] Z01.419 Screening for malignant neoplasm of rectum 113701197 Z12.12 Screening mammography 24 436652 Z12.31 [id number] MD CATRACHITA Mcdowell MD [address] [facility], [address] [place] [address] 04/10/2021 08:56:08 04/10/2021 09:48:12 Atypical squamous cells of undetermined significance on cervical Papanicolaou smear [id number] R87.610 [id number] MD CATRACHITA Mcdowell MD [address] [facility], [address] [place] [address] 01/12/2022 10:49:47 01/12/2022 11:52:52 Specialized medical examination [id number] Z01.419 Screening for malignant neoplasm of rectum 649182447 Z12.12 Screening mammography 24 479394 Z12.31 Personal h istory of primary malignant neoplasm of breast [id number] Z85.3 [id number] MD CATRACHITA Mcdowell MD [address] [facility], [address] [place] [address] 01/14/2023 10:42:03 01/14/2023 11:53:41 Specialized medical examination [id number] Z01.419 Screening for malignant neoplasm of rectum 081368623 Z12.12 Screening mammography 24 932002 Z12.31 [id number] MD CATRACHITA Mcdowell MD [address] [facility], [address] [place] [address] 01/16/2024 10:47:11 01/16/2024 13:03:47 Specialized medical examination [id number] Z01.419 Screening for malignant neoplasm of rectum 555569770 Z12.12 Screening mammography 24 070393 Z12.31 Menopausal syndrome 1237 78213 N95.8 History of Malignant melanoma 590940528 Z85.820 Personal h istory of primary malignant neoplasm of breast [id number] Z85.3 Health Concerns Section Related Observation LastModified by Organization Detai ls LastModified Time None Recorded Concern Status LastModified by Organization Details LastModified Time None Recorded Advance Directives Directive None Recorded Payers Insurance Date Sequence Insurance Name Policy Number Policy Kelly Covered Member ID Kelly Member ID Guarantor Name 01/16/2024 1 [facility] [id number] Kelsey Schneider [id number] Kelsey Schneider Notes Date Note Type Note Provider Name and Address Organization Details Recorded Time 01/05/2021 text/html She is here for annual exam, 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 She had right breast invasive lobular cancer in 2008: is BRCA negative. Note from 2019: She is here for annual exam, is doing well. She had to cancel the Dr. Ortiz appointment a few times due to work, and then never rescheduled, but feels that recently her incontinence is improved. 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 Catrachita Barrera MD [address], [place], [address], [place] [facility], 01/05/2021 14:29:58 04/10/2021 text/html She is here for repeat pap as prior pap had ASCUS without HR HPV. Prior paps have all been fine. Catrachita Barrera MD [address], [place], [address], [place] - [facility], 04/10/2021 09:12:14 01/12/2022 text/html She is here [...] is BRCA negative. Catrachita Barrera MD [address], [place], [address], [place] - [facility], 01/12/2022 11:34:16 01/14/2023 text/html She is here for annual, doing well, remote history breast cancer. She is up to date with everything except colonoscopy, which she is just now due for. Note from 2021: She is here for annual exam, doing well. Past history breast cancer. Her daughter and granddaughter finally moved out of her home!She is BRCA negative. Catrachita Barrera MD [address] [facility],[address], [place], [address], [place] - [facility], 01/14/2023 11:35:40 01/16/2024 text/html She is here [...] is BRCA negative. Catrachita Barrera MD [address] [facility],[address], [place], [address], [place] - [facility], 01/16/2024 11:46:20 OBGyn Episode No OBEpisode recorded.
== END 2024-12-29 13:49 | disposition home or self-care (01) ==
LOC: HO.HOP 12:59
PROVIDERS: PCP Physician Assistant; Visit Provider Psychiatry & Neurology Psychiatry
DX: F32.4 Major depressive disorder, single episode, in partial remission (principal); F41.1 Generalized anxiety disorder
CPT/HCPCS: 90833; 99213

== ENCOUNTER 2025-05-26 13:01 | Outpatient (AMB) | payer OTHER, SELFPAY ==
--- NOTE | 2025-05-26 13:28 | MHC.OFFVISPS ---
Intake Intake Visit Reasons: depression Allergies No Known Allergies Allergy (Verified 05/23/22 11:44) HPI- Psychiatric Chief Complaint: depression HPI Narrative: The patient attended a psychiatric follow-up appointment primarily to discuss current mental health symptoms and medication management. Discussed use of a locked box to protect her clonazepam from her daughter who had recently taken some of her medication HPI The patient reported experiencing intermittent anxiety, described as a weird anxious feeling, which occurred unexpectedly, often in the middle of the day. The patient mentioned feeling kind of an anxious feeling, which sometimes coincides with hot flashes that can trigger anxiety. The patient stated that deep breathing exercises helped manage these episodes. The patient also indicated experiencing periods of breakthrough depression and anxiety, although no specific panic attacks were noted. MENTAL STATUS The patient reported mood as a lot better since the living situation had changed. BACKGROUND The patient did not report any new allergies or medications. The patient is currently taking clonazepam, two tablets at night, and Wellbutrin. The patient described engaging in physical exercises such as band exercises to maintain strength and balance. The patient noted difficulty in securing a primary care provider and is currently managing healthcare needs through an OBGYN. Past Psychiatric History: Patient has long history of anxiety disorder including panic which has generally been managed and history of intermittent depressive episodes Mental Status Exam Mental Status Exam Patient Appearance: Well Grooomed Patient Orientation: Person, Place, Time and Situation Level of Consciousness: Awake and Appropriate Patient Behavior: Appropriate Mood Description: Calm and Appropriate Affect Description: Calm and Appropriate Patient Cognition Impaired: No Ability to Follow Directions: Good Speech Pattern: Clear Memory Description: Intact Hallucinations: None Delusions: Not Present Thought Process: Intact and Goal Oriented Thought Content: positive for Goal Oriented, positive for Preoccupation, negative for Suicidal Ideation or negative for Homicidal Ideation Depressive Symptoms: Loss of Energy Judgement: Good Assessment and Plan Assessment & Plan (1) Major depressive disorder in partial remission: Status: Acute Code(s): F32.4 - Major depressive disorder, single episode, in partial remission (2) Generalized anxiety disorder: Status: Acute Code(s): F41.1 - Generalized anxiety disorder Plan Continue plan of care patient generally doing well again urged lockbox for safety. Patient on waiting list for transferring to another living situation. Patient is on a waiting list for older adult housing. It is ongoing difficult for her to live with her ex- refuse medical care and her daughter who has very difficult relationship with the patient Medications: Refilled bupropion HCl SR 100 mg PO BID 180 tabs 1RF 90 days buspirone 30 mg PO BID 180 tabs 1RF escitalopram oxalate 20 mg PO DAILY 90 tabs 1RF Counseling and coordination of Care Details: I spent [] minutes reviewing the record, seeing the patient and documenting in the medical record. Counseling provided to the patient/caregiver as outlined below. Addressed patient/caregiver concerns regarding current medication regime including effective adherence. Addressed patient/caregiver concerns regarding diagnosis and prognosis including accuracy of diagnosis, prognosis over time, impact of diagnosis. Addressed patient/caregiver concerns regarding impact of recent stressors. [facility] Medical History (Updated 05/23/22 @ 11:38 by Seven Manzanares MD) Panic disorder Breast cancer in female Melanoma Social History: PT LIVES WITH H BUT ESTRANGED HE IS SERIOUSLY ILL PROSTATE CA SEVERE COPD DOES NOT TAKE CARE OF SELF 1 SON 1 DAUGHTER HX SUB ABUSE ANXIETY EXTENSIVE IN FAMILY WORKS [employer] WORK[employer] Substance History: NA Coding Level of Care Code Est Pt Level 4 (05983) Diagnoses Major depressive disorder in partial remission F32.4 Generalized anxiety disorder F41.1
--- OUTSIDE RECORDS SUMMARY | 2025-05-26 16:06 | XMS_ITS ---
Author Name [facility] Organization Unknown Care Team Organization Name Specialty Phone Email Start Date End Da te [facility] Obdulio [facility] 05/08/2022 02/17/2024
== END 2025-05-26 13:39 | disposition home or self-care (01) ==
LOC: HO.HOP 13:01
PROVIDERS: PCP Physician Assistant; Visit Provider Psychiatry & Neurology Psychiatry
DX: F32.4 Major depressive disorder, single episode, in partial remission (principal); F41.1 Generalized anxiety disorder
CPT/HCPCS: 99214